=== PATIENT | male | born 1985 | race Caucasian/White ===

== ENCOUNTER 2016-10-26 15:46 | Emergency (ER) | payer OTHER, BC ==
[2016-10-26 17:17] VITALS: BP 121/75
[2016-10-26] MEDS ORDERED: Ibuprofen TAB* 600 MG PO ONE (17:31)
--- NOTE | 2016-10-26 18:15 | RAD ---
INDICATION: Left knee pain COMPARISON: None TECHNIQUE: AP, lateral, tunnel, and sunrise views were obtained. FINDINGS: The bony structures, joint spaces, and soft tissues are normal for age. IMPRESSION: NEGATIVE EXAMINATION.
--- NOTE | 2016-10-26 18:19 | RAD ---
INDICATION: Left lower leg pain COMPARISON: None TECHNIQUE: AP and lateral views were obtained. FINDINGS: The bony structures, joint spaces, and soft tissues are normal. IMPRESSION: NEGATIVE EXAMINATION.
--- NOTE | 2016-10-26 18:20 | RAD ---
INDICATION: Left ankle injury COMPARISON: None TECHNIQUE: AP, lateral, and oblique views were obtained. FINDINGS: The bony structures, joint spaces, and soft tissues are normal for age. IMPRESSION: NEGATIVE EXAMINATION.
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
== END 2016-10-26 19:10 | disposition home or self-care (01) ==
LOC: UCEAST 15:46
DX: S93.412A Sprain of calcaneofibular ligament of left ankle, initial encounter (principal); S83.92XA Sprain of unspecified site of left knee, initial encounter; F17.210 Nicotine dependence, cigarettes, uncomplicated; W18.39XA Other fall on same level, initial encounter
CPT/HCPCS: 99212; A9270-GY; G0463

== ENCOUNTER 2016-11-10 11:23 | Emergency (ER) | payer BC, OTHER ==
[2016-11-10 11:33] VITALS: BP 122/81
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
== END 2016-11-10 11:45 | disposition home or self-care (01) ==
LOC: UCEAST 11:23
DX: S83.92XD Sprain of unspecified site of left knee, subsequent encounter (principal); S93.402D Sprain of unspecified ligament of left ankle, subsequent encounter; X50.1XXD Overexertion from prolonged static or awkward postures, subsequent encounter; F17.210 Nicotine dependence, cigarettes, uncomplicated
CPT/HCPCS: 99211; G0463

== ENCOUNTER 2018-05-18 10:03 | Emergency (ER) | payer SELFPAY ==
[2018-05-18 10:12] VITALS: BP 142/94
--- NOTE | 2018-05-18 10:45 | UC ---
UC General HPI - HPI Summary HPI Summary: Patient presents to urgent care requesting documentation that he can return to work without restrictions. Patient states he was incarcerated for 5 days. Company policy is that he has a note cleariing hime to return work. Patient without any complaints or concerns. Patient states he feels well and thinks he needs no restrictions. Pt scheduled to work today. Pt is wearing an ankle alcohol monitoring device. Pt states he used hand study hall supervisor after using restroom. Pt concerned - called his corporate officer. 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 - Family History Known Family History: Positive: Cardiac Disease, Diabetes, Other - Yes- [place] - Social History Occupation: Employed Full-time Lives: With Family Alcohol Use: None Substance Use Type: None Smoking Status (MU): Former Smoker Type: Smokeless Tobacco Amount Used/How Often: 1/2 PPD Have You Smoked in the Last Year: Yes When Did the Patient Quit Smoking/Using Tobacco: 02/10/18 Review of Systems All Other Systems Reviewed And Are Negative: Yes Constitutional: Positive: Negative Skin: Positive: Negative Is Patient Immunocompromised?: No Physical Exam - Summary Physical Exam Summary: Vital Signs Reviewed: Yes A+Ox3, no distress Eyes: Conjunctiva Clear, DARLINE. EOM intact and full ENT: Hearing grossly normal TM x 2 clear, mmoist, uvula midline, no exudate, no erythema Neck: Positive: Supple Respiratory: Positive: No respiratory distress, No accessory muscle use + CTA throughout no w/r Cardiovascular: RRR nl s1, s2 no m/r CBT <2 sec abd soft + BS nt/nd no guarding, no distension Musculoskeletal Exam: PEREZ x 4 without difficulty Strength Intact, ROM Intact Neurological: Positive: Alert, + sensation throughout Psychological: Positive: Normal Response To Family Skin: Positive: no rash, no ecchymosis CN 2-12 intact and full + FNF b/l 5/5 abduction, flex/ext elbow, wrist against resistant 5/5 SLE, flex/ext knee, ankle + great toe extension + gross sensation throughout neg rhomberg + heel/toe walking Triage Information Reviewed: Yes Vital Signs: Initial Vital Signs Temp 98.7 F 05/18/18 10:09 Pulse 76 05/18/18 10:09 Resp 16 05/18/18 10:09 BP 142/94 05/18/18 10:09 Pulse Ox 99 05/18/18 10:09 Course/Dx - Course Course Of Treatment: Patient presents to urgent care requesting a return to work note with no restrictions. Patient was recently incarcerated and his employer requires this documentation. Patient without any concerns or feels needs restrictions. Vital signs are stable. Patient with a non-concerning normal exam. Patient given a note stating that he can return today without striction's. Patient also given a note states he used hand study hall supervisor as he hasn 't ankle alcohol monitoring device and is concerned that he used hand study hall supervisor overtly after using the restroom. Patient states he didn't notify his corporate officer prior to me entering the room. Pt with slight elevation BP - given physician referral center to arrange a PCP an f/u - Diagnoses Provider Diagnosis: Normal exam Discharge - Sign-Out/Discharge Documenting (check all that apply): Patient Departure All imaging exams completed and their final reports reviewed: No Studies - Discharge Plan Condition: Stable Disposition: HOME Patient Education Materials: Normal Exam (ED) Forms: *Gen. Provider Communication, *Work Release Referrals: [facility] [Outside] - Billing Disposition and Condition Condition: STABLE Disposition: Home
== END 2018-05-18 10:42 | disposition home or self-care (01) ==
LOC: UCEAST 10:03
DX: Z02.79 Encounter for issue of other medical certificate (principal); Z87.891 Personal history of nicotine dependence
CPT/HCPCS: 99211; G0463